=== PATIENT | male | born 1995 ===

== ENCOUNTER 2018-12-26 13:46 | Emergency (ER) | payer OTHER ==
[~2018-12-26] VITALS: Ht 172.7 cm; Wt 122.5 kg
[2018-12-26 14:45] VITALS: BP 111/73
== END 2018-12-26 15:57 | disposition home or self-care (01) ==
LOC: ER 13:46
DX: S83.91XA Sprain of unspecified site of right knee, initial encounter (principal); V86.56XA Driver of dirt bike or motor/cross bike injured in nontraffic accident, initial encounter; Y93.89 Activity, other specified; Y99.8 Other external cause status; Y92.89 Other specified places as the place of occurrence of the external cause
CPT/HCPCS: 29505; 73562